=== PATIENT | female | born 1965 | race Caucasian/White ===

== ENCOUNTER 2019-12-29 00:18 | Outpatient (CLI) | payer OTHER, SELFPAY ==
[2019-12-29 18:40] LABS: SARS-CoV-2 RNA PCR Negative
== END 2019-12-29 00:19 | disposition home or self-care (01) ==
LOC: ANHCOVIDDT 00:18
PROVIDERS: PCP Family Medicine; Visit Provider Internal Medicine Gastroenterology
DX: Z01.818 Encounter for other preprocedural examination (principal); Z11.59 Encounter for screening for other viral diseases
CPT/HCPCS: 87635; C9803; U0003

== ENCOUNTER 2020-01-01 02:10 | Day surgery (SDC) | payer OTHER, SELFPAY ==
[2019-12-28 10:29] VITALS: BMI 40.3
[2020-01-01 09:13] VITALS: BP 125/76; PULSE 70; RESP 16; TEMP 36.8; O2SAT 100; BMI 40.9
[2020-01-01] MEDS: LACTATED RINGERS 1,000 ML 150 ML IV CONT (09:22)
--- NOTE | 2020-01-01 09:27 | WPDANESEPPF ---
Anes - Initial Pre Proc Eval Procedure: Operation Date: 01/01/20 10:00 Proposed Procedures p Esophagogastroduodenoscopy - Favian Epstein MD Date/Time: 01/01/20 09:27 Surgeon: Favian Epstein MD Pre Op Diagnosis: Epigastric Pain Patient Data Age: 54 Gender: F Height: 1.57 m Weight: 101.6 kg Last Vital Signs Temp 36.8 C 01/01/20 09:13 Pulse 70 01/01/20 09:13 Resp 16 01/01/20 09:13 BP 125/76 01/01/20 09:13 Pulse Ox 100 01/01/20 09:13 Allergies Allergy/AdvReac Type Severity Reaction Status Date / Time tramadol Allergy Other Verified 01/01/20 09:12 Home Medications Medication Instructions Recorded Confirmed Type pantoprazole 40 mg PO DAILY 12/28/19 01/01/20 History Patient hx anesthesia problems: none Family hx anesthesia problems: none [facility] Past Medical History Medical History (Updated 01/01/20 @ 09:28 by William Castro MD) Arthritis Back pain Morbid obesity with BMI of 40.0-44.9, adult Surgical History Surgical History (Updated 12/29/19 @ 10:57 by Chichi Chew) History of 2006 History of endoscopy 01/01/20 Family History Family History (Updated 12/29/19 @ 10:58 by Chichi Chew) Father Diabetes mellitus Social History Social History (Updated 12/29/19 @ 10:58 by Chichi Chew) Smoking status: Never smoker Alcohol intake: current Additional occupation/education comments: [employer] Pharmacy Anes - Eval Final PreProcedure Day of Procedure 01/01/20 09:27 Patient weight: morbidly obese Heart: regular rate and rhythm Lungs: clear to auscultation and normal air movement Airway: Mallampati scale Neurological: alert and oriented Last oral intake: >/= 8 hours ASA classification: III Emergent: no Anesthetic plan: proceed Anesthesia type and monitoring: general GIVS Informed Consent: The patient's anesthetic plan and its attendant risks and benefits were discussed with the patient/family/POA. Questions were solicited and answers provided to the satisfaction of the patient/family/POA.
--- NOTE | 2020-01-01 10:00 | WPDGICN ---
Assessment and Plan Assessment and plan (1) Epigastric abdominal pain: Code(s): R10.13 - Epigastric pain Status: Acute Assessment and Plan: Plan is for EGD to further assess epigastric pain. Continuing proton pump inhibitor peers prudent at the present time. Further recommendations will be given after endoscopy. (2) Abdominal wall hernia: Code(s): K43.9 - Ventral hernia without obstruction or gangrene Status: Acute Assessment and Plan: Surgical repair of hernia anticipated period is unclear whether this contributes to her current epigastric discomfort. She has a surgical appointment pending. (3) Obesity (BMI 30.0-34.9): Code(s): E66.9 - Obesity, unspecified Status: Acute GI Consult Note Consult date/time: 01/01/20 10:00 HPI: Bambi Bello is a 54 year old female Seen in evaluation at the request of Mikel Diaz. Patient has history of epigastric pain off and on for the last 6 months. It is worsened over the last 1 month. She will notice epigastric pain that will last 1-2 days. No relation to diet. No relation to activity. She is a tried omeprazole for 1 month with no clear improvement in symptoms. Recent CT scan and ultrasound are unremarkable. She denies any weight loss. She denies any bleeding. Family history noncontributory. Review of Systems Review of Systems: All systems reviewed & are unremarkable except as noted in HPI and below PMFSH Past Medical History Medical History Arthritis Back pain Morbid obesity with BMI of 40.0-44.9, adult Surgical History Surgical History History of 1994, 2006 History of endoscopy 01/01/20 Family History Family History Father Diabetes mellitus Social History Social History Smoking status: Never smoker Alcohol intake: current Additional occupation/education comments: [employer] Pharmacy Meds Home Medications and Allergies Home Medications Medication Instructions Recorded Confirmed Type pantoprazole 40 mg PO DAILY 12/28/19 01/01/20 History Allergies Allergy/AdvReac Type Severity Reaction Status Date / Time tramadol Allergy Other Verified 01/01/20 09:12 Vital Signs Vital Signs - 24 hr 01/01/20 09:13 Temperature 36.8 C Pulse Rate 70 Respiratory Rate 16 Blood Pressure 125/76 Pulse Oximetry 100 Exam Narrative: Exam Narrative: Physical exam reveals her to be alert. Oriented x3. HEENT exam unremarkable. She is anicteric. Lungs are clear to auscultation and percussion. Heart is without murmur or extra sounds. Abdominal exam is somewhat obese. Bowel sounds are present soft current we nontender she has right Lower abdominal wall hernia.
[2020-01-01] MEDS: BENZOCAINE (*SP) 60 ML SPRAY CAN (HURRICAINE) 1 SPRAY MUCOUS MEM (10:17)
[2020-01-01 10:30] VITALS: BP 118/78; PULSE 68; RESP 20; O2SAT 100
[2020-01-01 10:40] VITALS: BP 121/77; PULSE 71; RESP 20; O2SAT 96
[2020-01-01 10:50] VITALS: BP 116/64; PULSE 65; RESP 18; O2SAT 97
== END 2020-01-01 11:12 | disposition home or self-care (01) ==
PROVIDERS: PCP Family Medicine; Visit Provider Internal Medicine Gastroenterology
PROC: 0DJ08ZZ Inspection of Upper Intestinal Tract, Via Natural or Artificial Opening Endoscopic (ICD-10-PCS; CPT 43235; principal; 2020-01-01 10:00)
DX: K21.9 Gastro-esophageal reflux disease without esophagitis (principal); K43.9 Ventral hernia without obstruction or gangrene; E66.01 Morbid (severe) obesity due to excess calories; Z68.41 Body mass index [BMI] 40.0-44.9, adult
CPT/HCPCS: 43239; 87081; J2704; J7120

== ENCOUNTER 2020-01-19 09:34 | Outpatient (CLI) | payer OTHER, SELFPAY | END 2020-01-19 09:35 | disposition home or self-care (01) | LOC: ANHSURGERY 09:38 | PROVIDERS: PCP Family Medicine; Visit Provider Surgery | DX: Z01.818 Encounter for other preprocedural examination (principal); K43.9 Ventral hernia without obstruction or gangrene | CPT/HCPCS: 36415; 86850; 86900; 86901 ==

== ENCOUNTER 2020-01-26 00:30 | Outpatient (CLI) | payer OTHER, SELFPAY ==
[2020-01-26 18:12] LABS: SARS-CoV-2 RNA PCR Negative
== END 2020-01-26 00:31 | disposition home or self-care (01) ==
LOC: ANHCOVIDDT 00:30
PROVIDERS: PCP Family Medicine; Visit Provider Surgery
DX: Z20.828 Contact with and (suspected) exposure to other viral communicable diseases (principal); Z01.812 Encounter for preprocedural laboratory examination
CPT/HCPCS: 87635; C9803; U0003

== ENCOUNTER 2020-01-28 01:32 | Day surgery (SDC) | payer OTHER, SELFPAY ==
[2020-01-18 09:18] VITALS: BMI 41.8
[2020-01-28] VITALS (11 sets, daily range): BP systolic 111–154; BP diastolic 62–85; PULSE 49–81; RESP 12–19; TEMP 36.4–36.5; O2SAT 92–98
--- NOTE | 2020-01-28 12:52 | P.PNAN_ITS ---
Anes - Initial Pre Proc Eval Procedure: Operation Date: 01/28/20 14:30 Proposed Procedures p Robotic Assisted Laparoscopic Right Lower Quadrant Ventral Hernia Repair With Mesh - Fang Pressley MD Date/Time: 01/28/20 12:52 Surgeon: Fang Pressley MD Pre Op Diagnosis: Right Lower Quadrant Ventral Hernia Patient Data Age: 54 Gender: F Height: 5 ft 2 in Weight: 103.4 kg Allergies Allergy/AdvReac Type Severity Reaction Status Date / Time tramadol Allergy Intermediate VOMITING, Verified 01/28/20 12:31 DIZZY Home Medications Medication Instructions Recorded Confirmed Type pantoprazole 40 mg PO QPM 12/28/19 01/28/20 History Patient hx anesthesia problems: none Family hx anesthesia problems: none PMFSH Past Medical History Medical History Arthritis Back pain GERD (gastroesophageal reflux disease) Mild cerebral palsy uses cane/walker Morbid obesity with BMI of 40.0-44.9, adult Neurofibromatosis Surgical History Surgical History History of 2006 History of endoscopy 01/01/20 Family History Family History Father Diabetes mellitus Social History Social History Smoking status: Never smoker Alcohol intake: current Additional occupation/education comments: [employer] Pharmacy Anes - Eval Final PreProcedure Day of Procedure 01/28/20 12:52 Patient weight: morbidly obese Heart: regular rate and rhythm Lungs: clear to auscultation Airway: Mallampati scale class II Neurological: alert and oriented Last oral intake: >/= 8 hours ASA classification: III Emergent: no Anesthetic plan: proceed Anesthesia type and monitoring: general ETT and standard monitoring Informed Consent: The patient's anesthetic plan and its attendant risks and benefits were discussed with the patient/family/POA. Questions were solicited and answers provided to the satisfaction of the patient/family/POA.
[2020-01-28] MEDS: LACTATED RINGERS 1,000 ML 30 ML IV CONT ×3 (13:05→17:19)
--- NOTE | 2020-01-28 13:50 | SUR.PREOP ---
Assisted up to bathroom.
--- NOTE | 2020-01-28 14:06 | WPDHPUPDATE1 ---
History and Physical Update Update Date/Time: 01/28/20 14:06 History and Physical has been reviewed, including an updated exam of the patient. There are NO changes in the patient's condition. Risks, benefits, and alternatives have been discussed and questions answered. Patient agrees to proceed with procedure.
[2020-01-28] MEDS: IBUPROFEN IV 800 MG/200 ML 800 MG/200 ML BAG 400 MG IVPB (14:30)
[2020-01-28] MEDS: ceFAZolin 2 GM/D5W 50 ML 2 GM/50 ML BAG IVPB (15:02)
[2020-01-28] MEDS: BUPIVACAINE/EPINEPHRINE 0.5% 30 ML VIAL INFILTRATE (15:04)
--- NOTE | 2020-01-28 16:12 | P.OP_ITS ---
Procedure Note - Detailed Date of procedure: 01/28/20 Pre-op diagnosis: Right Lower Quadrant Ventral Hernia Incarcerated right lower quadrant ventral hernia Post-op diagnosis: same Procedure performed: robotic assisted repair incarcerated right lower quadrant ventral hernia with 15 x 10 cm Symbotec attack mesh Description of procedure: The patient was taken the operating room placed in the supine position. After adequate induction of general anesthesia, the patient was prepped and draped in normal sterile fashion. A time-out was then done to verify the patient's identity as well as the procedure being performed. I began by making a 8 mm incision in the left upper quadrant. Through this, a Veress needle was placed into the peritoneal cavity and CO2 gas was insufflated. After adequate pneumoperitoneum was achieved, a 8 mm trocar was placed through this incision. I then placed the laparoscope through this trocar site and under direct visualization I placed a 8 mm port in the left mid abdomen as well as an additional 12 mm port in the epigastrium. The robot was then docked to the 3 port sites. I then went to the robotic console. I began by identifying the incarcerated right lower quadrant ventral hernia. Using 2 graspers, I was able to reduce the incarcerated ventral hernia. The hernia was noted to contain both a loop of small intestine as well as preperitoneal fat and omentum. Once r educed, the defect measured approximately 5 x 4 cm. I closed the decfect with 0 strata fix suture. I then placed a 15 x 10 cm symbotex mesh into the abdominal cavity. A Vicryl stitch was placed in the middle of the mesh and brought up centering the mesh over the defect. Once this was done, I used 2.0 V lock suture x 2 to circumferentially suture the mesh to the abdominal. Once the mesh was completely sutured in, I was happy with our tension-free repair. The mesh was noted to have good overlap of the closed defect. At this point, the robot was undocked and all ports were removed. I then closed the 12 mm port site with an 0 Vicryl [id number] suture at the fascial level. All port sites were then closed with 4 O Monocryl subcuticular suture. The patient tolerated the procedure well, is extubated in the operating room postoperative, OB transferred to the recovery room in stable condition. Implants: 15 x 10 symbotex mesh Anesthesia: GETA Surgeon: Fang Pressley MD Estimated blood loss (mL): 10 Drains: No Packing: No Pathology: none sent Complications: No immediate complications Condition: stable Disposition: PACU Findings: Incarcerated right lower quadrant ventral hernia containing small bowel preperitoneal fat and omentum
[2020-01-28] MEDS: ONDANSETRON INJ 4 MG/2 ML VIAL IV PUSH (16:37)
[2020-01-28] MEDS: PROMETHAZINE HCL 25 MG/ML AMPUL 6.25 MG IV PUSH (17:48)
== END 2020-01-28 19:13 | disposition home or self-care (01) ==
PROVIDERS: PCP Family Medicine; Visit Provider Surgery
PROC: (CPT 49653; principal; 2020-01-28 14:30)
DX: K43.6 Other and unspecified ventral hernia with obstruction, without gangrene (principal); G80.9 Cerebral palsy, unspecified; K21.9 Gastro-esophageal reflux disease without esophagitis; Q85.00 Neurofibromatosis, unspecified; E66.01 Morbid (severe) obesity due to excess calories; Z68.41 Body mass index [BMI] 40.0-44.9, adult
CPT/HCPCS: 49653; S2900; C1781; J0690; J1100; J1200; J1741; J2250; J2405; J2550; J2704; J2710; J3010; J7120

== ENCOUNTER → 2020-09-07 14:57 | Outpatient (CLI) | payer OTHER, SELFPAY ==
--- NOTE | ~2020-09-07 | MR_ITS ---
EXAMINATION: MR foot LT wo con DATE: 09/07/2020 15:56 INDICATION: 2 months of worsening left foot pain TECHNIQUE: Magnetic resonance imaging (MRI) of the left mid and hindfoot was performed without intrav enous contrast. Sequences included sagittal, coronal, and axial proton-density weighted fast spin ech o without and with fat saturation. COMPARISON: None. FINDINGS: Medial ankle ligaments: Deep deltoid ligament is normal. There is thickening and increased signal of the inferior aspect of t he anterior aspect of the superficial deltoid ligament consistent with likely partial tear. The super omedial component of the spring ligament complex appears thickened with increased signal and more valentino rphous attenuated with increased signal distally consistent with additional partial tear of the dista l aspect of the ligament. The infra plantar lateral and medial plantar oblique components of the spri ng ligament are normal. Lateral ankle ligaments: The anterior and posterior inferior tibiofibular ligaments are normal. The anterior talofibular, calc aneofibular and posterior talofibular ligaments are normal. Tendons: Achilles tendon is normal. The peroneus longus and brevis tendons are normal. The tibialis anterior a nd extensor hallucis longus and extensor digitorum longus tendons are normal. Small amount of fluid a long the tibialis posterior and flexor digitorum longus tendon sheath consistent with mild tenosynovi tis. The flexor digitorum longus and flexor hallucis longus tendons are normal. There is thickening a nd increased signal of the tibialis posterior tendon beginning at the level of the tip of the medial malleolus. There appears . Longitudinal split tear between the portions of the tendon extending to th e navicula does extending into the more lateral midfoot which propagates 2.5 cm proximal from the nisha icular insertion again to the level of the tip of the medial malleolus. Plantar fascia: Moderate-sized plantar calcaneal spur at the origin of the otherwise unremarkable plantar aponeurosis . No significant surrounding edema to suggest acute plantar fasciitis. Bones/other: Likely reactive mild marrow edema at the medial navicular underlying the insertion of the tibialis po sterior tendon. Mild osteoarthritis at the calcaneocuboid and a few of the tarsal metatarsal joints, the latter with small regions of mild likely degenerative subarticular edema. Otherwise normal bone m arrow signal. No fracture, osteonecrosis or pathologic marrow replacing process. Mild osteoarthritis at the calcaneocuboid and a few tarsal metatarsal joints. There are numerous small PD hyperintense cu taneous nodules at the visualized foot and ankle most suggestive of neurofibromatosis. Fluid: Physiologic amount of fluid in the joint spaces. Mild soft tissue edema at the medial hindfoot center ed about the tibialis posterior tendon. Additional edema at Kager's fat pad. IMPRESSION: 1. Mild tibialis waiter/waitress head tenosynovitis with moderate tendinopathy and longitudinal split tearing of th e distal tendon. 2. At least partial tears of the superomedial component of the spring ligament complex and associated anterior superficial deltoid ligament. 3. Numerous scattered small subcutaneous nodule suggestive of neurofibromatosis. Reviewed, dictated and finalized at location B. GNATED BROKER IMPRESSION: 1. Mild tibialis waiter/waitress head tenosynovitis with moderate tendinopathy and longitudin al split tearing of the distal tendon. 2. At least partial tears of the superomedial component of the spring ligament complex and associated anterior superficial deltoid ligament. 3. Numerous scattered small subcutaneous nodule suggestive of neurofibromatosis .
== END ==
PROVIDERS: Visit Provider Podiatrist Foot & Ankle Surgery
DX: M66.372 Spontaneous rupture of flexor tendons, left ankle and foot (principal); M79.672 Pain in left foot
CPT/HCPCS: 73718

== ENCOUNTER 2021-12-24 10:48 | Emergency (ER) | payer OTHER, SELFPAY ==
--- NOTE | ~2021-12-24 | US_ITS ---
US venous doppler [facility] DATE: 12/24/2021 11:57 INDICATION: Pain and swelling of left lower extremity TECHNIQUE: Real-time and color flow imaging and Doppler analysis of the veins of the left lower extre mity COMPARISON: None FINDINGS: The left greater saphenous vein is patent. There is spontaneous and phasic flow and normal augmentation and color flow signal and normal compression of the deep veins of the left leg. IMPRESSION: No evidence of deep venous thrombosis of left lower extremity Reviewed, dictated and finalized at [facility]. Reviewed, dictated and finalized at location A.
[2021-12-24 10:49] VITALS: BP 158/78; PULSE 61; RESP 16; TEMP 36.6; O2SAT 99
--- NOTE | 2021-12-24 12:29 | ED.LOWEXIN ---
HPI - Extremity Injury (Lower) General Chief Complaint: Extremity Injury, Lower Stated Complaint: possibly have a blood clot Time Seen by Provider: 12/24/21 11:23 History of Present Illness HPI Narrative: Patient is a 56-year-old female with a history of neurofibromatosis who presents emergency department for evaluation of pain behind her left knee today. She states the pain came on gradually, although it is very mild. Denies history of previous similar pain. She was at [employer] this morning, and was told by a another patron who is an ER nurse that she should come to the ED to rule out blood clot. Patient states the pain was not bothersome enough to take pain medication, but this comment about the blood clot worried her. Denies calf pain, recent immobilization, history of smoking, fevers, chest pain, cough. Related Data Home Medications Medication Instructions Recorded Confirmed pantoprazole 40 mg PO QPM 12/28/19 01/28/20 ibuprofen 600 mg tablet 600 mg PO Q6H PRN 02/10/20 Allergies Allergy/AdvReac Type Severity Reaction Status Date / Time tramadol Allergy Intermediate VOMITING, Verified 02/10/20 09:02 DIZZY Review of Systems Review of Systems: Gen.: Denies fevers or chills Eyes: Denies eye pain or visual change ENT: Denies congestion Respiratory: Denies shortness of breath or cough CV: Denies chest pain or palpitations GI: Denies abdominal pain nausea, emesis or diarrhea denies burning, urgency, frequency or hematuria Musculoskeletal: Reports right knee pain. Denies back pain or muscle pain Neuro: Denies numbness, tingling, weakness or focal weakness Skin: Denies rash Except as documented, all other systems reviewed and negative All systems reviewed & are unremarkable except as noted in HPI and below PMFSH Past Medical History Medical History Arthritis Back pain GERD (gastroesophageal reflux disease) Mild cerebral palsy uses cane/walker Morbid obesity with BMI of 40.0-44.9, adult Neurofibromatosis Surgical History Surgical History History of 1994, 2006 History of endoscopy 01/01/20 Ventral hernia without obstruction or gangrene Family History Family History Father Diabetes mellitus Social History Social History (Updated 02/10/20 @ 09:10 by Michelle [facility]) Smoking status: Never smoker Alcohol intake: current Substance use: never Additional occupation/education comments: [employer] Gender identity (if verbalized by the patient): Female Exam Narrative: APPEARANCE: Well appearing, no pain in distress, well-nourished. Head: normocephalic and atraumatic. EYES: PERRLA/EOMI, conjunctivae clear NOSE: No nasal drainage EARS: External ear normal in appearance THROAT: Oropharynx is clear. Mucous membranes are moist. NECK: Supple. No adenopathy, no masses. RESPIRATORY: Airway patent, respirations nonlabored. Clear to auscultation bilaterally, no rales, rhonchi, wheezing. CARDIOVASCULAR: 2+ DP and PT pulses bilaterally. Regular rate and rhythm without murmurs, rubs, or gallops. ABDOMINAL: Normoactive bowel sounds. Soft, nontender, nondistended. No rebound tenderness or guarding. MUSCULOSKELETAL: Full range of motion of bilateral feet, knees and hips without pain. No bony tenderness along patella, femur, tib-fib. Extremities are warm and well-perfused. Moves all extremities well. 1+ pitting edema to left lower extremity. Left calf is approximately 1 cm larger than the right calf. Able to ambulate without pain. NEURO: normal speech. No focal neurologic deficits. SKIN: Patient has numerous skin tags across body. Skin is warm and dry. PSYCHIATRIC: Normal affect/mood.. Course Vital Signs Vital signs: Vital Signs Temperature 97.8 F 12/24/21 10:49 Pulse Rate 61 12/24/21 10:49 Res
== END 2021-12-24 12:51 | disposition home or self-care (01) ==
PROVIDERS: Emergency Provider Emergency Medicine; PCP Family Medicine
DX: Q85.00 Neurofibromatosis, unspecified (principal); G80.9 Cerebral palsy, unspecified; K21.9 Gastro-esophageal reflux disease without esophagitis; M19.90 Unspecified osteoarthritis, unspecified site; E66.01 Morbid (severe) obesity due to excess calories; Z68.41 Body mass index [BMI] 40.0-44.9, adult
CPT/HCPCS: 93971; 99284

== ENCOUNTER 2022-07-03 16:13 | Outpatient (CLI) | payer OTHER, MEDICAID, SELFPAY ==
--- NOTE | ~2022-07-03 | US_ITS ---
EXAMINATION: US venous doppler LE RT DATE: 07/03/2022 17:02 INDICATION: RIGHT LOWER EXTREMITY PAIN OR SWELLING . TECHNIQUE: Grayscale images without and with compression and Doppler images of the right lower extrem ity veins were obtained. COMPARISON: None FINDINGS: The right common femoral vein, profunda (deep) femoral vein, femoral vein, popliteal vein, peroneal v ein, posterior tibial veins, gastrocnemius vein, and greater saphenous vein are patent. IMPRESSION: 1. Patent right lower extremity veins. No evidence of deep venous thrombosis. Reviewed, dictated and finalized at location K. HER MACHINE
== END 2022-07-03 16:14 | disposition home or self-care (01) ==
PROVIDERS: PCP Family Medicine; Visit Provider Orthopaedic Surgery Sports Medicine
DX: M79.89 Other specified soft tissue disorders (principal)
CPT/HCPCS: 93971

== ENCOUNTER 2023-01-09 10:50 | Outpatient (RCR) | payer OTHER, SELFPAY ==
[2023-01-09 10:53] VITALS: BMI 47.9
== END 2023-04-09 23:59 | disposition home or self-care (01) ==
LOC: ANHDMC 10:50
PROVIDERS: PCP Family Medicine; Visit Provider Family Medicine
DX: R73.01 Impaired fasting glucose (principal); Z68.42 Body mass index [BMI] 45.0-49.9, adult; Z71.3 Dietary counseling and surveillance
CPT/HCPCS: 97802

== ENCOUNTER 2024-03-14 11:53 | Emergency (ER) | payer OTHER, SELFPAY ==
--- NOTE | ~2024-03-14 | XR_ITS ---
EXAMINATION: XR knee RT min 4V DATE: 03/14/2024 12:44 INDICATION: Right knee injury and pain. TECHNIQUE: 4 views of right knee were obtained. COMPARISON: None. FINDINGS: Alignment is normal. No fracture. There is mild tricompartmental osteoarthritis. No knee erica int effusion. There is superficial infrapatellar soft tissue swelling. IMPRESSION: 1. Mild right knee osteoarthritis. Reviewed, dictated and finalized at location A.
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
--- NOTE | ~2024-03-14 | XR_ITS ---
EXAMINATION: XR ankle RT min 3V DATE: 03/14/2024 12:44 INDICATION: Right ankle injury and pain. TECHNIQUE: 4 views of right ankle were obtained. COMPARISON: None. FINDINGS: Bone alignment is normal. No fracture. Joint spaces are normal. There are enthesophytes at the posterior and plantar aspects of calcaneal tuberosity. There are dystrophic calcifications in the calf. IMPRESSION: 1. No fracture. Reviewed, dictated and finalized at location A. IMPRESSION: 1. No fracture.
[2024-03-14 11:58] VITALS: BP 101/72; PULSE 88; RESP 18; TEMP 36.6; O2SAT 97
[2024-03-14 12:15] VITALS: BP 101/72; PULSE 97; RESP 18; O2SAT 94
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
[2024-03-14 13:55] VITALS: BP 91/58; PULSE 87; RESP 18; TEMP 37.1; O2SAT 98
== END 2024-03-14 13:56 | disposition home or self-care (01) ==
PROVIDERS: Emergency Provider Emergency Medicine; PCP Family Medicine
DX: S80.211A Abrasion, right knee, initial encounter (principal); S99.911A Unspecified injury of right ankle, initial encounter; S40.211A Abrasion of right shoulder, initial encounter; I48.0 Paroxysmal atrial fibrillation; G80.9 Cerebral palsy, unspecified; E66.01 Morbid (severe) obesity due to excess calories; Z68.42 Body mass index [BMI] 45.0-49.9, adult; E78.5 Hyperlipidemia, unspecified; K21.9 Gastro-esophageal reflux disease without esophagitis; M17.0 Bilateral primary osteoarthritis of knee; I51.7 Cardiomegaly; Z79.01 Long term (current) use of anticoagulants; Z79.899 Other long term (current) drug therapy; V49.40XA Driver injured in collision with unspecified motor vehicles in traffic accident, initial encounter
CPT/HCPCS: 71046; 73564; 73610; 99284